=== PATIENT | male | born 1970 | race Caucasian/White ===

== ENCOUNTER 2024-03-08 06:11 | Day surgery (SDC) | payer BC ==
[2024-03-08] MEDS ORDERED: Sodium Chloride 0.9% 10 ML Syringe FLUSH PRN (06:15)
[2024-03-08] MEDS: Lactated Ringers 1,000 ML IV SCH (06:45)
== END 2024-03-08 07:30 ==
LOC: FB.SDS 06:11
PROVIDERS: ATTEND Surgery
DX: Z12.11 Encounter for screening for malignant neoplasm of colon (principal); Z80.0 Family history of malignant neoplasm of digestive organs; K42.0 Umbilical hernia with obstruction, without gangrene; N17.9 Acute kidney failure, unspecified; I95.1 Orthostatic hypotension; Z53.8 Procedure and treatment not carried out for other reasons
CPT/HCPCS: 93005; J7120; 93010

== ENCOUNTER 2024-03-08 07:43 | Inpatient (IN) | payer BC ==
[2024-03-08] MEDS: Sodium Chloride 0.9% 1,000 ML IV ONE (08:20)
[2024-03-08 08:30] LABS: BASOPHILS PERCENT AUTO 0.3 % (0.3-3.8); EOSINOPHILS PERCENT AUTO 0.2 % (0.1-6.8); HEMATOCRIT 49.3 % (38.3-50.1); HEMOGLOBIN 16.7 g/dL (12.9-17.7); LYMPHOCYTES ABSOLUTE AUTO 1.2 x10-3/uL (0.5-4.5); LYMPHOCYTES PERCENT AUTO 9.4 % (15.8-45.3); MEAN CORPUSCULAR HEMOGLOBIN 29.2 pg (27.0-33.3); MEAN CORPUSCULAR VOLUME 85.9 fL (80.8-98.7); MEAN PLATELET VOLUME 8.9 fL (6.7-11.0); MONOCYTES ABSOLUTE AUTO 0.9 x10-3/uL (0.0-1.2); MONOCYTES PERCENT AUTO 7.4 % (5.5-15.2); NEUTROPHILS ABSOLUTE AUTO 10.5 x10-3/uL (1.7-6.9); NEUTROPHILS PERCENT AUTO 82.7 % (40.3-71.8); PLATELET COUNT,PLT 242 x10(3)uL (117-477); RED BLOOD CELL COUNT 5.73 x10(6)uL (3.90-5.90); RED CELL DISTRIBUTION WIDTH 12.4 % (12.4-15.0); WHITE BLOOD CELL COUNT,WBC 12.7 x10-3/uL (3.2-10.1)
[2024-03-08 08:40] LABS: ALANINE AMINOTRANSFERASE,ALT 67 U/L (12-36); ALBUMIN 3.8 g/dL (3.5-5.2); ALKALINE PHOSPHATASE 128 IU/L (56-112); ASPARTATE AMNIOTRANSFERASE,AST 28 IU/L (5-25); BILIRUBIN TOTAL 1.7 mg/dL (0.1-1.3); BLOOD UREA NITROGEN,BUN 34 mg/dL (7-18); BUN/CREATININE RATIO 7.9 (9-20); CALCIUM 9.2 mg/dL (8.6-10.2); CARBON DIOXIDE,CO2 29 mmol/L (21-32); CHLORIDE,CL 98 mmol/L (100-110); EST CRCL DRUG DOSING (CG) 21.81 mL/min; ESTIMATED GFR 16 mL/min (>60); GLUCOSE RANDOM 166 mg/dL (80-116); MAGNESIUM 2.1 mg/dL (1.8-2.5); PROTEIN TOTAL,TP 7.5 g/dL (6.0-8.0); SODIUM,NA 135 mmol/L (135-145)
[2024-03-08 08:42] LABS: C-REACTIVE PROTEIN 0.91 mg/dL (<0.50); TROPONIN I 7.4 pg/mL (4.0-60.3)
[2024-03-08 08:43] LABS: CREATININE 4.3 mg/dL (0.70-1.30)
[2024-03-08] MEDS: Sodium Chloride 0.9% 1,000 ML IV SCH ×2 (09:37→15:47)
[2024-03-08 10:16] LABS: BILIRUBIN,URINE MODERATE (NEGATIVE); GLUCOSE,URINE 100 mg/dL (NORMAL); KETONES,URINE 15 mg/dL (NEGATIVE); LEUKOCYTE ESTERASE,URINE SMALL (NEGATIVE); NITRITE,URINE NEGATIVE (NEGATIVE); OCCULT BLOOD,URINE MODERATE (NEGATIVE); PROTEIN,URINE 500 mg/dL (NEGATIVE); UROBILINOGEN,URINE 1 mg/dL (NEGATIVE)
[2024-03-08 10:23] LABS: APPEARANCE,URINE CLOUDY (CLEAR); BACTERIA,URINE MODERATE (NS); COLOR,URINE ORANGE (YELLOW); FINE GRANULAR CASTS,URINE MANY (NS); SQUAMOUS EPITHELIAL CELLS,UR MODERATE (NS,R,O)
[2024-03-08 10:24] LABS: COARSE GRANULAR CASTS,URINE MANY (NS)
[2024-03-08] MEDS ORDERED: Acetaminophen 325 MG Tab PO PRN (13:02)
[2024-03-08] MEDS ORDERED: Acetaminophen 650 MG Supp RECTAL PRN (13:02)
[2024-03-08] MEDS ORDERED: cefTRIAXone 1 GM in Sodium Chloride 0.9% 50 ML IV STA (13:10)
[2024-03-08] MEDS ORDERED: hydrALAZINE 20 MG/ML SDV IVPUSH PRN (13:12)
[2024-03-08] MEDS: Heparin Sodium 5,000 Units/ML Vial SUBCUT SCH (14:15)
[2024-03-08] MEDS: cefTRIAXone 1 GM Vial IVPUSH SCH (14:18)
[2024-03-08] MEDS: Azithromycin 500 MG in Sodium Chloride 0.9% 250 ML IV SCH (15:45)
[2024-03-08 18:41] LABS: INFLUENZA A NAA NEGATIVE (NEGATIVE); INFLUENZA B NAA NEGATIVE (NEGATIVE); RESPIRATORY SYNCYTIAL VIR NAA NEGATIVE (NEGATIVE)
[2024-03-08 18:48] LABS: CORONAVIRUS COVID-19 NAA NEGATIVE (NEGATIVE)
[2024-03-09] MEDS ORDERED: Tamsulosin 0.4 MG Cap.ER PO SCH (09:00)
[2024-03-09] MEDS ORDERED: Lidocaine 4% 1 each Patch TOP SCH (09:00)
[2024-03-12 20:39] LABS: CREATININE,URINE - PER VOLUME 505 mg/dL; HOURS COLLECTED Random hr; TOTAL VOLUME Random mL
== END 2024-03-08 21:00 | DRG 720 ==
LOC: FB.ED 07:43 → FB.MS 10:27
PROVIDERS: ADMIT Internal Medicine; ATTEND Internal Medicine
DX: A41.9 Sepsis, unspecified organism (principal); N17.0 Acute kidney failure with tubular necrosis; J18.9 Pneumonia, unspecified organism; R65.20 Severe sepsis without septic shock; N39.0 Urinary tract infection, site not specified; I10 Essential (primary) hypertension; N40.0 Benign prostatic hyperplasia without lower urinary tract symptoms; E86.0 Dehydration; G47.30 Sleep apnea, unspecified; M19.90 Unspecified osteoarthritis, unspecified site; E66.9 Obesity, unspecified; R74.01 Elevation of levels of liver transaminase levels; Z79.899 Other long term (current) drug therapy; Z98.890 Other specified postprocedural states; Z87.81 Personal history of (healed) traumatic fracture; Z68.36 Body mass index [BMI] 36.0-36.9, adult
CPT/HCPCS: 0241U; 36415; 71046; 76770; 80053; 81001; 82550; 82570; 83605; 83735; 84100; 84484; 85025; 86140; 87040; 87086; 87088; 87186; 93010; 96360; 96361; 99235; 99285; 99285-25; J0456; J0696; J1644; J7030; J7050

== ENCOUNTER 2025-06-28 07:44 | Day surgery (SDC) | payer BC ==
[2025-06-28] MEDS ORDERED: Midazolam 1 MG/ML 2 ML SDV IV ONE (07:45)
[2025-06-28] MEDS ORDERED: Ketamine 500 mg/10 ML MDV IV ONE (07:45)
[2025-06-28] MEDS ORDERED: Propofol 200 MG/20 ML SDV IV ONE (07:45)
[2025-06-28] MEDS ORDERED: Sodium Chloride 0.9% 10 ML Syringe FLUSH PRN (07:45)
[2025-06-28] MEDS: Lactated Ringers 1,000 ML IV SCH (08:17)
== END 2025-06-28 10:26 | disposition home or self-care (01) ==
LOC: FB.SDS 07:44
PROVIDERS: ATTEND Surgery
DX: Z12.11 Encounter for screening for malignant neoplasm of colon (principal); D12.6 Benign neoplasm of colon, unspecified; Z80.0 Family history of malignant neoplasm of digestive organs
CPT/HCPCS: 00811; 88305; A9270-GY; J2250; J2704; J3490; J7120